=== PATIENT | female | born 1940 | race Two or more races ===

== ENCOUNTER 2025-01-03 11:49 | Inpatient (IN) | payer OTHER ==
[~2025-01-03] VITALS: Ht 152.4 cm; Wt 77.1 kg
--- NOTE | 2025-01-03 12:48 | NUR ---
SE RECIBE PACIENTE LEVEMENTE ALERTA DESORTIENTADA PARCIALMENTE , SE OBSERVA PACIENTE CON DEVILIDAD DE LADO DERECHO DEL CUERPO Y DECOMISUREA LABIAL. SE REALIZA EKG . SE NOTIFICA EN TURNO Y SE UBICA PACIENTE EN AREA DE OBSERVACION
[2025-01-03] MEDS ORDERED: ATORVASTATIN CALCIUM 40 MG TABLET PO ONE (14:15)
[2025-01-03] MEDS ORDERED: CLOPIDOGREL BISULFATE 75 MG TABLET PO ONE ×2 (14:15→14:25)
[2025-01-03] MEDS ORDERED: ASPIRIN 325 MG TABLET PO ONE (14:15)
--- NOTE | 2025-01-03 14:34 | NUR ---
SE RECIBE PACIENTE FEMENINA ALERTA Y ORIENTADA EN PERSONA, SE COLOCA EN AREA DE CRITICO EN LA CAMA #3 CON BARANDAS ELEVADAS. SE CONECTA A MONITOR CARDIACO Y OXIMETRIA DE PULSO. SE CANALIZA EN BARZO LUTHER CON ANGIO #22 Y SE LE COLOCA H/L PATENTE JOSH EDEMA Y ENROJECIMIENTO. SE LE SILVIA LAS MUETRAS Y SE LE ADMINISTRAN LOS MEDICAMENTOS JADE LA ORDEN MEDICA. SE LE REALIZA CT DE VAISHALI. SE OSBERVA POR CAMBIOS.
[2025-01-03 14:38] LABS: BASO % 0.4 % (0.1-1.2); EOS # 0.01 (0.04-0.54); EOS % 0.1 % (0.7-7.0); LYMPH # 1.52 (1.18-3.74); LYMPH % 19.3 % (19.3-53.1); MEAN PLATELET VOLUME 10.40 fl (9.4-12.4); MONO # 0.60 (0.24-0.82); MONO % 7.6 % (4.7-12.5); NEUT # 5.70 (1.56-6.13); NEUT % 72.2 % (34.0-71.1); RED CELL DISTRIBUTION WIDTH 12.7 % (11.6-14.4)
[2025-01-03 14:56] LABS: COVID-19 AG NEGATIVE (NEGATIVE)
--- NOTE | 2025-01-03 16:00 | NUR ---
SE RECIBE PACIENTE ALERTA. CONECTADA A MONITOR CARDIACO CON OXIMETRIA DE PULSO. EXTREMIDADES SUPERIORES E INFERIORES LIBRES DE BENI,A Y ERITEMA. CON RESTRICCIONES X4. VENOPUNCION EN BRAZO IZQ. UN #22 EN H/L. ABDOMEN BLANDO AL TACTO Y JOSH DE DISTENCION Y DOLOR.
[2025-01-03 16:04] LABS: ALT/SGPT 37 U/L (12-78); AST/SGOT 27 U/L (15-37); BILIRUBIN TOTAL 0.38 mg/dL (0.3-1.2); BUN CREA RATIO 24 (7.0-25.0); CREATININE SERUM 0.87 mg/dL (0.55-1.02); GFR 62.03; GLOBULINA 2.6 G/DL (2.4-3.5); PHOSPHOKINASE CREATININE 99 U/L (26-192)
[2025-01-03 16:21] LABS: OSMOLALITY SERUM 281 MOSM/KG (275-295)
[2025-01-03 16:22] LABS: GLUCOSE FASTING 49 mg/dL (65-100)
[2025-01-03] MEDS ORDERED: INSULIN LISPRO 1,000 UNIT/10 ML UNITS SUBCUTANEO PRN (16:30)
[2025-01-03] MEDS ORDERED: DEXTROSE 50 % IN WATER 0.5 G/ML DISP.SYRIN IV PRN (16:30)
[2025-01-03 16:40] LABS: TSH < 0.005 uIU/mL (0.358-3.74)
[2025-01-03] MEDS ORDERED: DONEPEZIL HCL 5 MG TABLET PO SCH (17:00)
[2025-01-03 19:52] VITALS: BP 146/76
[2025-01-04 01:38] VITALS: BP 180/58; O2SAT 98
[2025-01-04 04:10] VITALS: BP 160/63
[2025-01-04] MEDS ORDERED: ACETAMINOPHEN 500 MG GEL..CAP PO PRN (06:45)
[2025-01-04 07:07] LABS: INR 1.06
[2025-01-04 07:21] LABS: CHOL HDL RATIO 1.5 (0-5.0); HDL 87.0 mg/dl (40-60); LDL 27.0 mg/dl (0-130); VLDL 13.0 (0-39)
[2025-01-04] MEDS ORDERED: PIPERACILLIN/TAZOBACTAM SODIUM 3.375 GM in DEXTROSE 5 % IN WATER 100 ML IV SCH (08:04)
[2025-01-04 08:53] LABS: URINE APPEARANCE Clear; URINE BILIRRUBIN Negative (NEGATIVE); URINE BLOOD Moderate; URINE COLOR Yellow; URINE GLUCOSE Negative (NEGATIVE); URINE KETONE 15 (NEGATIVE); URINE LEUKOCYTE Negative; URINE NITRATE Negative; URINE PROTEIN 30 (NEGATIVE); URINE UROBILINOGEN 0.2 E.U./dl
[2025-01-04 08:55] LABS: URINE BACTERIA 9.5 uL (0.0-1933); URINE CAST 1.90 uL (0.0-1.40); URINE EPITHELIAL CELLS 2.7 uL (0.0-38.8); URINE RBC 53.2 uL (0.0-20.8); URINE WBC 2.4 uL (0.0-23.2)
[2025-01-04] MEDS ORDERED: ATORVASTATIN CALCIUM 40 MG TABLET PO SCH (09:00)
[2025-01-04] MEDS ORDERED: 0.9 % SODIUM CHLORIDE 1,000 ML IV SCH (09:00)
[2025-01-04] MEDS ORDERED: ASPIRIN 81 MG TAB.CHEW PO SCH (09:00)
[2025-01-04] MEDS ORDERED: LORazepam 2 MG/ML VIAL IV NR (09:00)
[2025-01-04] MEDS ORDERED: HYDROCHLOROTHIAZIDE 12.5 MG CAPSULE PO SCH (09:00)
[2025-01-04] MEDS ORDERED: AMLODIPINE BESYLATE 5 MG TABLET PO SCH (09:00)
[2025-01-04 09:47] VITALS: BP 162/68; O2SAT 98
[2025-01-04 17:17] VITALS: BP 154/61
[2025-01-04 17:32] VITALS: BP 150/61; O2SAT 97
[2025-01-05 00:32] VITALS: BP 160/73; O2SAT 98
[2025-01-05 08:00] VITALS: BP 157/63; O2SAT 95
[2025-01-05] MEDS ORDERED: LOSARTAN POTASSIUM 50 MG TABLET PO SCH (09:00)
[2025-01-05] MEDS ORDERED: LACTOBACILLUS ACIDOPHILUS 1 CAP CAP PO SCH (09:00)
[2025-01-05 11:34] LABS: FREE TRIODOTIRONINE 4.32 pg/ml (2.18-3.98); T4 TOTAL 12.10 UG/DL (4.8-13.9)
[2025-01-05] MEDS ORDERED: PIPERACILLIN/TAZOBACTAM SODIUM 3.375 GM VIAL IV ONE (11:38)
[2025-01-05 12:13] LABS: TSH < 0.005 uIU/mL (0.358-3.74)
[2025-01-05 18:46] VITALS: BP 153/53
[2025-01-06 02:33] VITALS: BP 152/72; O2SAT 99
[2025-01-06 08:40] VITALS: BP 160/66; O2SAT 99
[2025-01-06] MEDS ORDERED: METHIMAZOLE 10 MG TABLET PO SCH (09:00)
[2025-01-07 01:00] VITALS: BP 156/61; O2SAT 99
[2025-01-07] MEDS ORDERED: INSULIN NPH HUM/REG INSULIN HM 1,000 UNIT/10 ML UNITS SUBCUTANEO SCH (08:00)
[2025-01-07 08:52] VITALS: BP 163/54; O2SAT 99
[2025-01-07] MEDS ORDERED: COZAAR50 MG PO (12:26)
[2025-01-07] MEDS ORDERED: ARICEPT5 MG PO (12:26)
[2025-01-07] MEDS ORDERED: INTESTINEX680 M1 PO (12:26)
[2025-01-07] MEDS ORDERED: AMLODIPINE BESYL5 MG PO (12:26)
[2025-01-07] MEDS ORDERED: AMOX1TAB5 PO (12:26)
[2025-01-07] MEDS ORDERED: ADULT ASPIRIN81 MG PO (12:26)
[2025-01-07] MEDS ORDERED: LIPITOR40 M1 PO (12:26)
[2025-01-07] MEDS ORDERED: HYDROCHLOROTH12.5 MG PO (12:26)
[2025-01-07 13:01] VITALS: O2SAT 97
== END 2025-01-07 16:21 | disposition home or self-care (01) | DRG 65 ==
LOC: ER 11:50 → MEDI 16:00
PROVIDERS: General Practice; Internal Medicine Endocrinology, Diabetes & Metabolism; ADMIT Internal Medicine; ATTEND Internal Medicine
PROC: BW28ZZZ Computerized Tomography (CT Scan) of Head (ICD-10-PCS; principal; 2025-01-03)
PROC: B030ZZZ Magnetic Resonance Imaging (MRI) of Brain (ICD-10-PCS; 2025-01-03)
PROC: B345ZZZ Ultrasonography of Bilateral Common Carotid Arteries (ICD-10-PCS; 2025-01-03)
PROC: B246ZZZ Ultrasonography of Right and Left Heart (ICD-10-PCS; 2025-01-03)
PROC: 4A12X4Z Monitoring of Cardiac Electrical Activity, External Approach (ICD-10-PCS; 2025-01-03)
PROC: BG44ZZZ Ultrasonography of Thyroid Gland (ICD-10-PCS; 2025-01-05)
DX: I63.9 Cerebral infarction, unspecified (principal); G45.8 Other transient cerebral ischemic attacks and related syndromes; E11.649 Type 2 diabetes mellitus with hypoglycemia without coma; Z79.4 Long term (current) use of insulin; I10 Essential (primary) hypertension; E78.5 Hyperlipidemia, unspecified; R41.82 Altered mental status, unspecified; G30.9 Alzheimer's disease, unspecified; F01.50 Vascular dementia, unspecified severity, without behavioral disturbance, psychotic disturbance, mood disturbance, and anxiety; E05.90 Thyrotoxicosis, unspecified without thyrotoxic crisis or storm; E78.49 Other hyperlipidemia
CPT/HCPCS: 70551